=== PATIENT | female | born 1985 | race Caucasian/White ===

== ENCOUNTER 2019-05-23 20:22 | Emergency (ER) | payer OTHER ==
[2019-05-23] MEDS ORDERED: ACETAMINOPHEN 325 MG TABLET PO ONE (21:10)
[2019-05-23] MEDS ORDERED: NORMAL SALINE 1000 ML 1,000 ML IV ONE (21:11)
[2019-05-23] MEDS ORDERED: METOCLOPRAMIDE HCL INJ/PF 10 MG/2 ML SDV IV ONE (21:11)
--- NOTE | 2019-05-23 21:13 | ER Document Report ---
ED Medical Screen (RME) - General Chief Complaint: Fever Stated Complaint: FEVER,DIZZINESS - Time Seen by Provider: 05/23/19 21:07 Primary Care Provider: RAMANA JIMENEZ [Primary Care Provider] - Follow up as needed TRAVEL OUTSIDE OF THE [place] IN LAST 30 DAYS: Yes - HPI Notes: 05/23/19 21:11 Patient is a 33-year-old female approximately 6 weeks presents complaining of fever, nasal congestion last discharge, sore throat, dry cough, decreased p.o. intake over the past 2 days. Patient states that she has been having some intermittent palpitations as well. Denies drug allergies. She is urinating normally and having normal bowel movements. No vaginal bleeding, odor, discharge, or pelvic pain. I have treated and performed a rapid initial assessment of this patient. A comprehensive ED assessment and evaluation of the patient, analysis of test results and completion of medical decision making process will be conducted by additional ED providers. PHYSICAL EXAMINATION: GENERAL: Well-appearing, well-nourished and in no acute distress. A&Ox4. Answers questions appropriately. Lungs: CTAB Heart: RRR Throat: mild erythema w/o airway compromise. Tonsils 2+ w/o palatine shift or uvula deviation. - Related Data Allergies/Adverse Reactions: No Known Allergies Allergy (Verified 05/23/19 21:04) Past Medical History - Social History Chew tobacco use (# tins/day): No Frequency of alcohol use: None Drug Abuse: None - Immunizations Hx Diphtheria, Pertussis, Tetanus Vaccination: Yes Physical Exam - Vital signs Vitals: Temp Pulse Resp BP Pulse Ox 100.9 F H 115 H 20 110/77 100 05/23/19 20:53 05/23/19 20:53 05/23/19 20:53 05/23/19 20:53 05/23/19 20:53 Course - Vital Signs Vital signs: Temp Pulse Resp BP Pulse Ox 100.9 F H 115 H 20 110/77 100 05/23/19 20:53 05/23/19 20:53 05/23/19 20:53 05/23/19 20:53 05/23/19 20:53 Doctor's Discharge - Discharge Referrals: RAMANA JIMENEZ [Primary Care Provider] - Follow up as needed
[2019-05-23 21:59] LABS: ABSOLUTE LYMPHOCYTES (AUTO) 0.6 10^3/uL (0.5-4.7); ABSOLUTE MONOCYTES (AUTO) 0.7 10^3/uL (0.1-1.4); ABSOLUTE NEUT (AUTO) 5.4 10^3/uL (1.7-8.2); APPEARANCE,URINE CLEAR; BASOPHILS % (AUTO) 0.4 % (0-2); BILIRUBIN,URINE NEGATIVE (NEGATIVE); COLOR,URINE YELLOW; EOSINOPHILS % (AUTO) 0.3 % (0-6); GLUCOSE, URINE NEGATIVE (NEGATIVE); HEMATOCRIT 37.6 % (36.0-47.0); HEMOGLOBIN 13.3 g/dL (12.0-15.5); KETONES,URINE NEGATIVE (NEGATIVE); LYMPHOCYTES % (AUTO) 8.6 % (13-45); MEAN CORPUSCULAR HEMOGLOBIN 30.7 pg (27.0-33.4); MEAN CORPUSCULAR HGB CONC 35.3 g/dL (32.0-36.0); MEAN CORPUSCULAR VOLUME 87 fl (80-97); MONOCYTES % (AUTO) 10.7 % (3-13); PLATELET COUNT 211 10^3/uL (150-450); PROTEIN,URINE NEGATIVE (NEGATIVE); RED BLOOD COUNT 4.31 10^6/uL (3.72-5.28); RED CELL DISTRIBUTION WIDTH 13.3 % (11.5-14.0); TOTAL CELLS COUNTED % (AUTO) 100 %; WHITE BLOOD COUNT 6.7 10^3/uL (4.0-10.5)
[2019-05-23 22:09] LABS: ALBUMIN 4.3 g/dL (3.5-5.0); ALKALINE PHOSPHATASE 62 U/L (38-126); ANION GAP 14 (5-19); ASPARTATE AMINO TRANSFERASE 27 U/L (14-36); BILIRUBIN,DIRECT 0.1 mg/dL (0.0-0.4); BILIRUBIN,TOTAL 1.3 mg/dL (0.2-1.3); BLOOD UREA NITROGEN 8 mg/dL (7-20); CALCIUM 9.3 mg/dL (8.4-10.2); CARBON DIOXIDE 22 mmol/L (22-30); CHLORIDE 102 mmol/L (98-107); GLUCOSE 105 mg/dL (75-110); POTASSIUM 3.5 mmol/L (3.6-5.0); TOTAL PROTEIN 7.2 g/dL (6.3-8.2)
[2019-05-23 22:15] LABS: A TYPE INFLUENZA AG NEGATIVE (NEGATIVE); B INFLUENZA AG NEGATIVE (NEGATIVE)
--- NOTE | 2019-05-23 22:15 | RADIOLOGY REPORT (SQ) ---
EXAM DESCRIPTION: XR CHEST 2 VIEWS COMPLETED DATE/TME: 05/23/2019 21:10 CLINICAL HISTORY: 33 years, Female, cough/fever Comparison: None FINDINGS: No focal lung consolidation. No pleural effusion. No pneumothorax. Cardiac and mediastinal silhouette is unremarkable. No acute osseous abnormality. Soft tissues are unremarkable. IMPRESSION: No acute findings. No focal lung consolidation.
[2019-05-24] MEDS ORDERED: ACETAMINOPHEN 325 MG TABLET ONE (01:38)
--- NOTE | 2019-05-24 02:39 | ER Document Report ---
ED General - General Chief Complaint: Fever Stated Complaint: FEVER,DIZZINESS - Time Seen by Provider: 05/23/19 21:07 Notes: Patient is a 33-year-old female that comes emergency department for chief complaint of fever, cough, congestion, sore throat for the past 2 days. Patient also states occasionally for she feels like her heart has an extra beat or 2 as well. She denies dizziness, chest pain, shortness of breath, abdominal pain, vaginal bleeding, nausea, vomiting. She is at 6 weeks, . She has not had the influenza vaccine. TRAVEL OUTSIDE OF THE [place] IN LAST 30 DAYS: Yes - Related Data Allergies/Adverse Reactions: No Known Allergies Allergy (Verified 05/23/19 21:04) Past Medical History - General Information source: Patient - Social History Smoking Status: Never Smoker Chew tobacco use (# tins/day): No Frequency of alcohol use: None Drug Abuse: None Lives with: Family Family History: Reviewed & Not Pertinent Patient has suicidal ideation: No Patient has homicidal ideation: No Surgical Hx: Negative - Immunizations Immunizations up to date: Yes Hx Diphtheria, Pertussis, Tetanus Vaccination: Yes Review of Systems - Review of Systems Constitutional: See HPI EENT: See HPI Cardiovascular: No symptoms reported Respiratory: See HPI Gastrointestinal: No symptoms reported Genitourinary: No symptoms reported Female Genitourinary: No symptoms reported Musculoskeletal: No symptoms reported Skin: No symptoms reported Hematologic/Lymphatic: No symptoms reported Neurological/Psychological: No symptoms reported Physical Exam - Vital signs Vitals: Temp Pulse Resp BP Pulse Ox 100.9 F H 115 H 20 110/77 100 05/23/19 20:53 05/23/19 20:53 05/23/19 20:53 05/23/19 20:53 05/23/19 20:53 - Notes Notes: GENERAL: Alert, interacts well. No acute distress. HEAD: Normocephalic, atraumatic. EYES: Pupils equal, round, and reactive to light. Extraocular movements intact. ENT: Oral mucosa moist, tongue midline. Oropharynx unremarkable. Airway patent. Nasal congestion, no nasal septal hematoma, TM's intact. NECK: Full range of motion. Supple. Trachea midline. LUNGS: Clear to auscultation bilaterally, no wheezes, rales, or rhonchi. No respiratory distress. HEART: Borderline tachycardic, normal rhythm, no murmur ABDOMEN: Soft, non-tender. Non-distended. Bowel sounds present in all 4 quadrants. GENITOURINARY: Deferred EXTREMITIES: Moves all 4 extremities spontaneously. No edema, normal radial and dorsalis pedis pulses bilaterally. No cyanosis. BACK: no cervical, thoracic, lumbar midline tenderness. No saddle anesthesia, normal distal neurovascular exam. Moves all extremities in full range of motion. NEUROLOGICAL: Alert and oriented x3. Normal speech. Cranial nerves II through XII grossly intact. PSYCH: Normal affect, normal mood. SKIN: Warm, dry, normal turgor. No rashes or lesions noted. Course - Re-evaluation Re-evalutation: Patient is alert, very well-appearing. She does have some mild congestion, clear lungs, soft abdomen. She is mildly tachycardic initially, this improved with IV fluids. She has no chest pain or shortness of breath suggesting pulmonary embolism. No lower extremity swelling. Reviewed work-up from triage. Chest x-ray negative. CBC, chemistry, urinalysis unremarkable. Influenza and strep are negative. Discussed all this with patient, she is very pleased with this, she states that she just wanted to be checked out to make sure she is okay. She is requesting discharge. She was provided with nausea medication after discussion because of frequent nausea at home. No indication for ultrasound at this time, discussed expectations, follow-up, and return precautions at length. Patient states understanding and agreement with plan. Stable at time of discharge. - Vital Signs Vital signs: Temp Pulse Resp BP Pulse Ox 98.8 F 103 H 14 121/66 98 05/24/19 02:47 05/24/19 03:52 05/24/19 03:52 05/24/19 02:47 05/24/19 03:52 - Laboratory Result Diagrams: 05/23/19 21:30 05/23/19 21:30 Laboratory results interpreted by me: 05/23/19 05/23/19 05/23/19 21:30 21:30 21:30 Lymph % (Auto) 8.6 L Seg Neutrophils % 80.0 H Potassium 3.5 L Beta HCG, Quant 31035.00 H Urine Urobilinogen 2.0 H - EKG Interpretation by Me Additional EKG results interpreted by me: EKG shows sinus tachycardia at a rate of 112, QTc 426, normal axis, no T wave inversions or ST segment changes in consecutive leads Discharge - Discharge Clinical Impression: Sinus congestion, Cough, Body aches, Palpitations Fever Qualifiers: Fever type: unspecified Qualified Code(s): R50.9 - Fever, unspecified Condition: Stable Disposition: HOME, SELF-CARE Additional Instructions: No pneumonia seen, your influenza and strep tests are negative, your general evaluation is reassuring. This is viral and should resolve with time. Drink plenty of fluids, take Tylenol 1000 mg every 6 hours for fever and body aches, take nausea medication if needed. Benadryl is also safe in and can help with the congestion. Follow-up with primary care. Return if you worsen including difficulty breathing, uncontrolled vomiting, or any other concerning or worsening symptoms. Prescriptions: Metoclopramide HCl [Reglan] 5 mg PO ASDIR PRN #30 tablet PRN Reason:
[2019-05-24 02:48] VITALS: BP 121/66
--- NOTE | 2019-05-24 13:44 | EKG REPORT ---
SEVERITY:- OTHERWISE NORMAL ECG - SINUS TACHYCARDIA : Confirmed by: Donna Fulton MD 24-May-2019 13:43:35
== END 2019-05-24 03:52 | disposition home or self-care (01) ==
LOC: ER 20:22
DX: O26.891 Other specified pregnancy related conditions, first trimester (principal); R50.9 Fever, unspecified; R09.81 Nasal congestion; R00.2 Palpitations; R05 Cough; R11.0 Nausea; R00.0 Tachycardia, unspecified; O99.511 Diseases of the respiratory system complicating pregnancy, first trimester; J02.9 Acute pharyngitis, unspecified; Z3A.01 Less than 8 weeks gestation of pregnancy
CPT/HCPCS: 93005; 99284; 96360; 36415; 87070; 87880; 84702; 85025; 80053; 81001; 87804; 71046; 93010; J7030